=== PATIENT | male | born 1965 | race Caucasian/White ===

== ENCOUNTER 2025-02-05 21:50 | Emergency (ER) | payer BC, SELFPAY ==
[2025-02-05] VITALS (18 sets, daily range): BP systolic 134–188; BP diastolic 74–97; PULSE 70–83; RESP 12–22; TEMP 37.1; O2SAT 93–99
--- NOTE | 2025-02-05 21:45 | RT.EKG_ITS ---
APPROVED REPORT Exam: Resting ECG Reason for Exam: Chest Pain Patient Location: E HR:80 bpm ECG Measurements Heart Rate 80 AXIS MI 168 P 63 QRSd 97 QRS 43 QT 371 T 33 QTc 429 Conclusion Sinus rhythm...normal P axis, V-rate 60- 99 Normal Electrocardiogram
--- NOTE | 2025-02-05 22:01 | W.ED.GENAD ---
Discharge Plan Disposition Patient Disposition: Home Condition: Good Discharge Details Clinical Impression: Anxiety, Headache Primary Care Provider: Marilia,Local ED Provider: Shamar Saleh and New Rx's Prescriptions: New lorazepam 0.5 mg tablet 0.5 mg PO BID PRN (Reason: anxiety) Qty: 5 0RF Continued sertraline 25 mg tablet 25 mg PO DAILY atorvastatin [Lipitor] 20 mg tablet 20 mg PO DAILY cyanocobalamin (vitamin B-12) 1,000 mcg capsule 1,000 mcg PO QDAY apixaban 5 mg tablet 5 mg PO BID lisinopril 20 mg tablet 40 mg PO DAILY sodium chloride 1,000 mg tablet,soluble 1,000 mg PO BID Discharge Instructions Instructions: Anxiety, Adult ED Additional Instructions: You were seen for elevated blood pressure, headache, chest discomfort, numbness and tingling similar to previous episodes that you recently been seen for. It does seem that a lot of this is stress and anxiety related. Your EKG and laboratory studies done here tonight are reassuring. The blood pressure came down on its own and your headache improved with prochlorperazine. I will prescribe low-dose lorazepam for you to use for significant anxiety symptoms over the weekend. Follow-up with your primary care back home next week. Return to ED for any focal neurologic change, new or worsening chest pain, severe worsening headache, other concerns. Discharge Data Discharge Date/Time-TO BE ENTERED AT DEPARTURE: 02/05/25 23:41 HPI General Mode of arrival: EMS. Date/Time Provider Initiated Documentation: 02/05/25 21:51. Limitations to Documentation: no limitations. Information obtained by: patient, EMS and RN notes reviewed. HPI Narrative: Patient presents to ED with complaint of chest discomfort, headache, numbness and tingling. Patient has had similar symptoms over the last couple of weeks. He reports being admitted to a hospital in [place] where he underwent extensive testing including MRI of the brain. He did not have any stress testing. 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 Patient was started on sertraline for component of anxiety. Patient reports a second episode of similar symptoms after a heated argument with his sister. Patient is currently in the area to take care of family issues and is currently staying at his parents old house. His father recently and he and his siblings have been having difficulty as well as arguments. He had recurrent symptoms that bothered him throughout the day. This evening acutely worse with similar numbness and tingling, worsening headache. Blood pressure elevated and patient brought into ED by ambulance. He was given aspirin. Currently no real chest pain. Blood pressure high on arrival. Still has headache but essentially no numbness or tingling at this time. Related Data Home Medications ?Medication ?Instructions ?Recorded ?Confirmed apixaban 5 mg tablet 5 mg PO BID 02/05/25 02/05/25 atorvastatin 20 mg tablet (Lipitor) 20 mg PO DAILY 02/05/25 02/05/25 cyanocobalamin (vitamin B-12) 1,000 mcg PO QDAY 02/05/25 02/05/25 1,000 mcg capsule lisinopril 20 mg tablet 40 mg PO DAILY 02/05/25 02/05/25 lorazepam 0.5 mg tablet 0.5 mg PO BID PRN anxiety #5 tabs 02/05/25 sertraline 25 mg tablet 25 mg PO DAILY 02/05/25 02/05/25 sodium chloride 1,000 mg soluble 1,000 mg PO BID 02/05/25 02/05/25 tablet Previous Rx's ?Medication ?Instructions ?Recorded lorazepam 0.5 mg tablet 0.5 mg PO BID PRN anxiety #5 tabs 02/05/25 Allergies Allergy/AdvReac Type Severity Reaction Status Date / Time No Known Allergies Allergy Unverified 02/05/25 21:53 General Stated Complaint: Chest Pain [place]: 3 Exam Narrative Exam Narrative: Const: WDWN male in NAD. VS per triage. HEENT: NC/AT. Normal facial exam. Neck: Supple. Trachea midline. Lungs: Normal respiratory effort. Lungs are clear. Cor: RRR without murmur. Good radial pulses. Neuro: A+O x 3. Normal speech, mentation, gait. Cranial nerves II - XII grossly intact. No gross motor or sensory deficit. Ext: No C/C/E. Course Vital Signs Vital signs: Vital Signs Temperature 98.8 F 02/05/25 21:45 Pulse 81 02/05/25 21:45 Respiratory Rate 18 02/05/25 21:45 Blood Pressure 176/97 H 02/05/25 21:45 Pulse Oximetry 99 02/05/25 21:45 Temperature 98.8 F 02/05/25 21:45 Temperature Source Oral 02/05/25 21:45 Pulse 81 02/05/25 21:45 Respiratory Rate 18 02/05/25 21:50 Respiratory Effort Normal 02/05/25 21:50 Respiratory Depth Normal 02/05/25 21:50 Respiratory Pattern Normal 02/05/25 21:50 Blood Pressure 176/97 H 02/05/25 21:45 Blood Pressure Position Sitting 02/05/25 21:45 Pulse Oximetry 99 02/05/25 21:45 Oxygen Delivery Method Room Air 02/05/25 21:45 Oxygen Flow Rate 0 02/05/25 21:45 Medical Decision Making Patient presenting to ED with complaint of chest discomfort, headache, numbness and tingling, elevated blood pressure. Patient reports history of same over the last few weeks. Per patient, extensive workup in [place] for initial episode of the symptoms. Subsequently followed up with PCP and started on sertraline for anxiety. Is only on 25 mg and has only been on it for short period of time. Has had 2 further episodes of similar symptoms that seem to be driven by stress and family crisis. He was transported here by ambulance and given aspirin. His exam overall is reassuring. His EKG is normal per my interpretation. Blood pressure is elevated but likely stress and anxiety related. Had actually called his PCP yesterday requesting something like Valium for him to use short-term given the need for sertraline dosing increase and time. Patient's biggest complaint at time of my evaluation is headache. He does report a previous normal MRI in [place]. I do not think he requires any further imaging at this time. Will give him IV prochlorperazine which should help with headache and anxiety while waiting for laboratory studies which had been initiated from triage to return to my concern for this being cardiac is very low. Patient's labs are unremarkable. His white count is minimally elevated. Troponin x 2 flat. Headache improved but not resolved with prochlorperazine. He is here for the weekend to try to finish up with his parents state in dealing with his sisters. I will provide him with as needed lorazepam 0.5 mg for as needed use. I have prescribed only 5. Patient is to follow-up with PCP next week when he returns home. Return precautions discussed and given. Lab Data Lab results reviewed: Yes I reviewed the patient's lab results. Lab results narrative: see MDM ECG Data Attestation: I personally reviewed and interpreted this ECG (s) as follows: Prior ECG tracings: available for review Interpretation: see MDM/EKG PFS All Active Problems Headache (Acute) Anxiety (Chronic) Medical History Hypercholesterolemia Pulmonary embolism HTN (hypertension) Surgical History History of surgery on lower extremity Social History Smoking/Tobacco Use Status: Current every day Tobacco Type: smokeless tobacco Smoking risk assessment performed?: Yes Alcohol Intake: current Alcohol Intake frequency: a few times a month Alcohol type: beer Substance use type: does not use
[2025-02-05 22:10] LABS: Abs Immature Grans 0.05 10^3/uL (0.0-0.06); HCT 43.2 % (40.0-50.0); HGB 14.6 g/dL (13.5-17.5); Immature Grans % 0.4 %; MCH 30.5 pg (27.0-33.0); MCHC 33.8 % (32.0-36.0); MCV 90 fL (80-95); MPV 10.2 fL (8.0-11.0); Platelet Count 270 10^3/uL (130-400); RBC 4.79 10^6/uL (4.36-5.78); RDW 12.2 % (11.8-14.1); RDW-SD 40.0 fL; WBC 12.17 10^3/uL (4.4-10.8)
[2025-02-05 22:28] LABS: ALT 47 U/L (16-63); AST 23 U/L (15-37); Albumin 3.6 g/dL (3.4-5.0); Alkaline Phosphatase 85 U/L (46-116); Anion Gap 10.8 mmol/L (3-11); BUN 11 mg/dL (7-18); Bilirubin, Total 0.5 mg/dL (0.2-1.0); CO2 24.2 mmol/L (21.0-32.0); Calcium 8.6 mg/dL (8.5-10.1); Chloride 99 mmol/L (98-107); Estimated GFR 97.78 (mL/min/1.73m2); Glucose 104 mg/dL (74-106); Potassium 3.9 mmol/L (3.5-5.1); Sodium 134 mmol/L (136-145); Total Protein 7.1 g/dL (6.4-8.2); Troponin I 12 ng/L (<or=76)
[2025-02-05] MEDS: Normal Saline 50 ML 100 ML (22:28)
[2025-02-05] MEDS: Prochlorperazine 10 MG/2 ML VIAL IVP (22:28)
[2025-02-05 23:17] LABS: Troponin I 12 ng/L (<or=76)
== END 2025-02-05 23:41 | disposition home or self-care (01) ==
PROVIDERS: Registered Nurse Emergency; Emergency Provider Emergency Medicine
DX: F41.9 Anxiety disorder, unspecified (principal); R51.9 Headache, unspecified; I10 Essential (primary) hypertension; E78.00 Pure hypercholesterolemia, unspecified; Z86.711 Personal history of pulmonary embolism; Z79.01 Long term (current) use of anticoagulants
CPT/HCPCS: 80053; 93005; 96374; 99284; 84484; 85025; 93010; J0780